=== PATIENT | male | born 1970 | race Caucasian/White ===

== ENCOUNTER 2018-03-13 22:16 | Emergency (ER) | payer BC ==
[~2018-03-13] VITALS: Ht 203.2 cm; Wt 104.5 kg
[2018-03-13 22:22] VITALS: BP 146/89; TEMP 97.9
[2018-03-13] MEDS ORDERED: TRILEPTAL 300M300 MG PO (23:18)
[2018-03-13] MEDS ORDERED: PRIL40 PO (23:18)
[2018-03-13] MEDS ORDERED: KLONOPIN2 MG PO (23:19)
[2018-03-13] MEDS ORDERED: CEPHALEXIN500 M1 PO (23:22)
[2018-03-14 02:00] VITALS: PULSE 72
== END 2018-03-13 23:42 | disposition home or self-care (01) ==
LOC: COL.ER 22:16
DX: T63.461A Toxic effect of venom of wasps, accidental (unintentional), initial encounter (principal); L03.114 Cellulitis of left upper limb